=== PATIENT | female | born 1975 | race Caucasian/White ===

== ENCOUNTER 2019-03-06 09:27 | Outpatient (CLI) | payer BC, OTHER ==
[~2019-03-06 09:27] MED LIST: CHOL10003 PO; FEXO1TAB29 PO; IBUP-1222 PO; MULT1TAB60 PO; OMEG1CAP23 PO; OXYC-302 PO; PNV1TABL11 PO
[2019-03-06] MEDS ORDERED: NITR100C6 PO (10:56)
== END 2019-03-06 23:59 | disposition home or self-care (01) ==
LOC: STAR 09:27
PROVIDERS: ATTEND Obstetrics & Gynecology Female Pelvic Medicine and Reconstructive Surgery
DX: Z02.9 Encounter for administrative examinations, unspecified (principal)

== ENCOUNTER 2019-03-11 10:48 | Day surgery (SDC) | payer BC, OTHER ==
[~2019-03-11] VITALS: Ht 172.7 cm; Wt 112.0 kg
[~2019-03-11 10:48] MED LIST changes: +BUPIVACAINE/PF 0.25% ONE; +EPINEPHRINE 1 MG/ML, 1ML ONE; +NEOMY/POLYMYXIN B GU IRR. 1 ML ONE; +NITR100C6 PO
[2019-03-11] MEDS ORDERED: LACTATED RINGERS 1,000 ML IV SCH (11:03)
[2019-03-11 11:21] VITALS: BP 119/84
[2019-03-11] MEDS ORDERED: ACETAMINOPHEN 500 MG TABLET PO ONE (11:30)
[2019-03-11] MEDS ORDERED: GABAPENTIN 300 MG CAPSULE PO ONE (11:30)
[2019-03-11] MEDS ORDERED: SCOPOLAMINE PATCH, 1.5MG PATCH.TD72 TD ONE (11:30)
[2019-03-11 11:59] LABS: HCG UR SG 1.021 (1.003-1.030)
[2019-03-11] MEDS ORDERED: FENTANYL PF 250 MCG/5ML ONE (12:09)
[2019-03-11] MEDS ORDERED: MIDAZOLAM 1 MG/ML, 2ML ONE (12:09)
[2019-03-11] MEDS ORDERED: ONDANSETRON 2MG/ML, 2ML ONE (12:14)
[2019-03-11] MEDS ORDERED: ROCURONIUM 10MG/ML,5ML ONE (12:14)
[2019-03-11] MEDS ORDERED: PROPOFOL 10 MG/ML, 20ML ONE (12:14)
[2019-03-11] MEDS ORDERED: DEXAMETHASONE 4 MG/ML, 1ML ONE (12:14)
[2019-03-11] MEDS ORDERED: CEFAZOLIN 1,000 MG ONE (12:14)
[2019-03-11] MEDS ORDERED: KETOROLAC 30 MG/1 ML ONE (12:14)
[2019-03-11] MEDS ORDERED: GLYCOPYRROLATE 0.2MG/1ML, 5ML ONE (12:14)
[2019-03-11] MEDS ORDERED: NEOSTIGMINE 1 MG/ML, 10ML ONE (12:14)
[2019-03-11] MEDS ORDERED: HALOPERIDOL 5 MG/ML IV PRN (13:30)
[2019-03-11] MEDS ORDERED: OXYcodone 5 MG/5 ML ORAL.SOL UDC PO PRN (13:30)
[2019-03-11] MEDS ORDERED: LABETALOL 5MG/ML, 20ML IV PRN (13:30)
[2019-03-11] MEDS ORDERED: PROMETHAZINE 25 MG/ML, 1ML IV PRN (13:30)
[2019-03-11] MEDS ORDERED: MEPERIDINE/PF 25MG/ML,1ML IVPush PRN (13:30)
[2019-03-11] MEDS ORDERED: MORPHINE SULFATE 4 MG/ML, 1ML IVPush PRN (13:30)
[2019-03-11] MEDS ORDERED: hydrALAzine 20 MG/ML, 1ML IV PRN (13:30)
[2019-03-11] MEDS ORDERED: HYDROmorphone 2 MG/ML, 1ML IVPush PRN (13:30)
[2019-03-11] MEDS ORDERED: FENTANYL PF 100 MCG/2ML ONE (15:12)
[2019-03-11] MEDS ORDERED: OXYcodone 5 MG/5 ML ORAL.SOL UDC ONE (15:12)
[2019-03-11] MEDS: FENTANYL PF 100 MCG/2ML IV PRN ×2 (15:16→15:23)
== END 2019-03-11 18:25 | disposition home or self-care (01) ==
LOC: OR 10:48
PROVIDERS: ATTEND Obstetrics & Gynecology Female Pelvic Medicine and Reconstructive Surgery
DX: N92.1 Excessive and frequent menstruation with irregular cycle (principal); N94.6 Dysmenorrhea, unspecified; Z30.2 Encounter for sterilization; N81.2 Incomplete uterovaginal prolapse; N81.89 Other female genital prolapse; N39.46 Mixed incontinence; R10.2 Pelvic and perineal pain; G43.909 Migraine, unspecified, not intractable, without status migrainosus; Z79.899 Other long term (current) drug therapy; Z91.018 Allergy to other foods; Z98.890 Other specified postprocedural states
CPT/HCPCS: 57265; 57282; 57288; 58563; 58670; 81025; C1771; J0171; J0690; J1100; J1885; J2250; J2405; J2704; J2710; J3010; J3490; J7120

== ENCOUNTER 2020-06-17 05:21 | Day surgery (SDC) | payer BC ==
[~2020-06-17] VITALS: Ht 172.7 cm; Wt 104.9 kg
[~2020-06-17 05:21] MED LIST changes: +ASCO-184 PO; -BUPIVACAINE/PF 0.25% ONE; +CROM13SP5 NS; -EPINEPHRINE 1 MG/ML, 1ML ONE; +MULT-449 PO; -MULT1TAB60 PO; -NEOMY/POLYMYXIN B GU IRR. 1 ML ONE; -OXYC-302 PO; +OXYC1TAB14 PO
[2020-06-17 06:20] VITALS: BP 117/81
[2020-06-17 06:26] LABS: HCG UR SG 1.017 (1.003-1.030)
[2020-06-17] MEDS ORDERED: CHLORHEXIDINE 15 ML UDC PO ONE (06:30)
[2020-06-17] MEDS ORDERED: LACTATED RINGERS 1,000 ML IV SCH (06:30)
[2020-06-17] MEDS ORDERED: MIDAZOLAM 1 MG/ML, 2ML ONE (06:46)
[2020-06-17] MEDS ORDERED: FENTANYL PF 100 MCG/2ML ONE ×2 (06:46→07:46)
[2020-06-17] MEDS ORDERED: BUPIVACAINE/PF 0.25% ONE (06:46)
[2020-06-17] MEDS ORDERED: BUPIVACAINE/PF 0.5% ONE ×3 (06:46→06:47)
[2020-06-17] MEDS ORDERED: PROPOFOL 10 MG/ML, 20ML ONE (06:47)
[2020-06-17] MEDS ORDERED: methylPREDNISolone *ACETATE* 40 MG/ML ONE (06:47)
[2020-06-17] MEDS ORDERED: LIDOCAINE-MPF 2% ,5ML ONE (06:47)
[2020-06-17] MEDS ORDERED: ONDANSETRON 2MG/ML, 2ML ONE (06:47)
[2020-06-17] MEDS ORDERED: KETOROLAC 30 MG/1 ML ONE (06:47)
[2020-06-17] MEDS ORDERED: BUPIVACAINE 0.25% ONE (06:47)
[2020-06-17] MEDS ORDERED: ROPIvacaine/PF 0.2%, 20 ML ONE (06:49)
[2020-06-17] MEDS ORDERED: EPINEPHRINE 1 MG/ML, 1ML ONE (06:49)
[2020-06-17] MEDS ORDERED: KETOROLAC 60 MG/2 ML ONE (06:49)
[2020-06-17] MEDS ORDERED: SODIUM CHLORIDE 0.9% 50 ML ONE (06:49)
[2020-06-17] MEDS ORDERED: OXYcodone 5 MG/5 ML ORAL.SOL UDC PO PRN ×2 (07:30→08:00)
[2020-06-17] MEDS ORDERED: ONDANSETRON 2MG/ML, 2ML IVPush PRN (07:30)
[2020-06-17] MEDS ORDERED: ACETAMINOPHEN 650 MG/20.3 ML UDC ONE (07:46)
[2020-06-17] MEDS ORDERED: OXYcodone 5 MG/5 ML ORAL.SOL UDC ONE (07:46)
[2020-06-17] MEDS ORDERED: FENTANYL PF 100 MCG/2ML IV PRN (08:00)
[2020-06-17] MEDS ORDERED: HYDROmorphone 1 MG/ML, 1ML INJ IVPush PRN (08:00)
[2020-06-17] MEDS ORDERED: ACETAMINOPHEN 325 MG TABLET PO PRN (08:00)
[2020-06-17] MEDS ORDERED: PROMETHAZINE 25 MG/ML, 1ML IVPush PRN (08:00)
== END 2020-06-17 09:00 | disposition home or self-care (01) ==
LOC: OUT 05:21
PROVIDERS: ATTEND Orthopaedic Surgery
DX: T84.82XA Fibrosis due to internal orthopedic prosthetic devices, implants and grafts, initial encounter (principal); Z20.822 Contact with and (suspected) exposure to COVID-19; Z79.899 Other long term (current) drug therapy; Z96.651 Presence of right artificial knee joint; Y83.8 Other surgical procedures as the cause of abnormal reaction of the patient, or of later complication, without mention of misadventure at the time of the procedure
CPT/HCPCS: 27570; 81025; J0171; J1885; J2250; J2405; J2704; J2795; J3010; J7120; U0003; J1030